=== PATIENT | female | born 2000 | race American Indian/Alaskan Native ===

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

== ENCOUNTER 2020-10-26 23:56 | Inpatient (IN) | payer MEDICAID ==
[2020-10-27] MEDS ORDERED: LACTATED RINGERS 1,000 ML IV ONE (01:05)
[2020-10-27] MEDS ORDERED: ePHEDrine SULFATE 50 MG/1 ML INJ IV PRN (01:23)
[2020-10-27] MEDS ORDERED: TERBUTALINE 1 MG/1 ML INJ SUB-Q PRN (01:23)
[2020-10-27] MEDS ORDERED: AMPICILLIN/NS 2 GM/100 ML 2 GM/100 ML BAG IV ONE (01:23)
[2020-10-27] MEDS ORDERED: LIDOCAINE (2%) 20 MG/1 ML VIAL 20 ML MDV INFILTRATI ONE (01:23)
[2020-10-27] MEDS ORDERED: LACTATED RINGERS 1,000 ML IV SCH (01:30)
--- NOTE | 2020-10-27 01:35 | History and Physical Report ---
History of Present Illness Date of examination: 10/27/20 Date of admission: 10/27/2020 Chief complaint: Possible leaking of fluid History of present illness: 20 year old presents to L&D stating that she had a small amount of discharge that was watery around 5:00 PM last evening but states that it stopped. She states she went to [facility] to see if her water was leaking; states she was told her water was not leaking and was sent home. Decided to come here for a second opinion. Patient states she does not have any watery discharge at the current time. She denies vaginal bleeding. She reports active movement. She states her EDC is 10/23/2020 but no records are available to confirm this. She states she has received care at [facility]. Patient states she had first trimester bleeding during this but has had an uneventful after her first trimester bleeding resolved. labs are not available; will request records as soon as office opens this morning. ROM plus was done upon arrival; result is negative. No fluid was seen leaking from vagina and pad is dry. Nitrazine negative. SVE 1.5/50/-3. Minimal to moderate FHR variability noted. Occasional variable FHR deceleration noted with rapid return to baseline (not recurrent, infrequent). Normal FHR baseline and accelerations noted. Past History Past Medical History: no pertinent history Past Surgical History: no surgical history [facility] REPOR[facility] History: chlamydia (history of chlamydia 5-6 years ago, treated and cured). denies: gonorrhea, hepatitis B, hepatitis C, herpes, HIV, syphilis, trichomonas Family/Genetic History: diabetes, cancer Social history: no significant social history - Obstetrical History Expected Date of Delivery: 10/23/20 Actual Gestation: 40 Week(s) 4 Day(s) : 2 Para: 1 Hx # Term Pregnancies: 0 Number of Pregnancies: 0 Spontaneous Abortions: 1 Induced : 0 Number of Living Children: 0 Medications and Allergies Allergies Allergy/AdvReac Type Severity Reaction Status Date / Time No Known Allergies Allergy Verified 10/27/20 01:09 Home Medications Medication Instructions Recorded Confirmed Last Taken Type Amoxicillin [Amoxicillin TAB] 875 mg PO BID 10 Days #20 tablet 07/06/18 Unknown Rx Clindamycin [Clindamycin CAP] 450 mg PO TID 7 Days #63 capsule 11/12/19 Unknown Rx Ibuprofen [Motrin 400 MG tab] 400 mg PO Q8H PRN #14 tablet 11/12/19 Unknown Rx Active Meds: Active Medications Ephedrine Sulfate (Ephedrine Sulfate 50 Mg/1 Ml Inj) 10 mg IV Q2M PRN PRN Reason: Hypotension Lactated Ringer's (Lactated Ringers) 1,000 mls @ 999 mls/hr IV BOLUS ONE Stop: 10/27/20 02:05 Lactated Ringer's (Lactated Ringers) 1,000 mls @ 125 mls/hr IV DIRECT MALACHI Oxytocin/Sodium Chloride (Pitocin/Ns 30 Unit/500ml) 30 units in 500 mls @ 40 mls/hr IV TITR MALACHI; Protocol Ampicillin Sodium (Ampicillin/Ns 2 Gm/100 Ml) 2 gm in 100 mls @ 100 mls/hr IV ONCE ONE; Protocol Stop: 10/27/20 02:22 Ampicillin Sodium (Ampicillin/Ns 1 Gm/50 Ml) 1 gm in 50 mls @ 100 mls/hr IV Q4H MALACHI; Protocol Lidocaine (Lidocaine (2%) 20 Mg/1 Ml Vial 20 Ml Mdv) 20 ml INFILTRATI ONCE ONE Stop: 10/27/20 01:24 Terbutaline Sulfate (Terbutaline 1 Mg/1 Ml Inj) 0.25 mg SUB-Q ONCE PRN PRN Reason: Hyperstimulation/Hypertonicity Review of Systems All systems: negative (possible leaking of fluid) - Vital Signs Vital signs: Vital Signs Pulse BP 100 H 130/74 10/27/20 00:58 10/27/20 00:58 Temp Pulse Resp BP Pulse Ox 99.5 F 100 H 16 130/74 10/27/20 01:00 10/27/20 01:00 10/27/20 01:00 10/27/20 01:00 - Physical Exam Abdomen: Positive: normal appearance, soft. Negative: distention, tenderness, guarding, rigidity Genitourinary (Female): Positive: normal external genitalia, normal perenium. Negative: perineal/vulvar lesions Vagina: Positive: normal moisture Uterus: Positive: enlarged. Negative: tender Anus/Rectum: Positive: normal perianal skin Extremities: Positive: normal. Negative: tenderness - Obstetrical FHR comments: Period of minimal variability on EFM; infrequent variable FHR deceleration with rapid return to baseline. Uterine Contraction Monitor Mode: External Cervical Dilatation: 1.5 Cervical Effacement Percentage: 50 station: -3 Uterine Contraction Pattern: Irregular Uterine Contraction Intensity: Mild Results All other labs normal. Assessment and Plan A: at 40 weeks, 4 days gestation by stated EDC. No records available. Variable FHR deceleration. P: Admit for observation overnight. Continuous EFM. US for BPP, RIVER, EDC/EGA, location and integrity of placenta, and presentation. UDS. IV hydration. Obtain records as soon as office opens this morning. Plan augmentation of labor as soon as able to obtain records/confirm EDC. Patient to have continuous EFM in the interim.
[2020-10-27] MEDS ORDERED: OXYTOCIN DRIP 30 UNITS/500 ML BAG IV SCH (02:00)
[2020-10-27 02:27] LABS: Hematocrit 32.3 % (30.3-42.9); Mean Corpuscular HGB Conc 34 % (30-34); Mean Corpuscular Volume 96 fl (79-97); Platelet Count 316 K/mm3 (140-440); Red Blood Count 3.35 M/mm3 (3.65-5.03); Red Cell Distribution Width 13.9 % (13.2-15.2)
--- NOTE | 2020-10-27 04:17 | Ultrasound Report ---
ULTRASOUND BIOPHYSICAL PROFILE INDICATION / CLINICAL INFORMATION: BPP. COMPARISON: None available. FINDINGS: BREATHING MOVEMENT = 2 GROSS BODY MOVEMENT = 2 TONE = 2 QUALITATIVE AMNIOTIC FLUID VOLUME = 2 TOTAL BIOPHYSICAL SCORE = 8/8 AMNIOTIC FLUID INDEX (cm) = 11.8 PRESENTATION: Cephalic. HEART RATE (beats per minute): 141 ADDITIONAL FINDINGS: None. IMPRESSION: 1. Biophysical Score = 8/8 Signer Name: Atul Merritt MD Signed: 10/27/2020 4:12 AM Workstation Name: [id number]
--- NOTE | 2020-10-27 04:19 | Ultrasound Report ---
ULTRASOUND OBSTETRIC INDICATION / CLINICAL INFORMATION: RIVER, presentation, EDC/EGA, check placenta. Clinical Gestational Age (GA): 40 weeks 4 days TECHNIQUE: Transabdominal. COMPARISON: None available. FINDINGS: There is a single intrauterine . Biparietal Diameter = 9.8 cm = 40 weeks, 0 day(s). Head Circumference = 34.1 cm = 39 weeks, 1 day(s). Abdominal Circumference = 32.1 cm = 36 weeks, 0 day(s). Femur Length = 7.6 cm = 39 weeks, 0 day(s). Average Ultrasound Age (AUA) = 38 weeks, 4 day(s). Heart Rate: 141 beats per minute. Estimated Weight in grams (if calculated): 3243 Estimated Weight Growth Percentile (if calculated): Position: cephalic. Cervix: closed. Length in cm (if measured): Placenta: Fundal left lateral grade 3 and free of the os. Amniotic Fluid Volume: normal Amniotic Fluid Index (RIVER) in cm (if calculated): 11.8. Maternal Adnexa: No significant abnormality. IMPRESSION: 1. Single, living intrauterine with estimated sonographic age of 38 weeks, 4 day(s). 2. No significant sonographic abnormality. Signer Name: Atul Merritt MD Signed: 10/27/2020 4:15 AM Workstation Name: [id number]
[2020-10-27] MEDS ORDERED: AMPICILLIN/NS 1 GM/50 ML 1 GM/50 ML BAG IV SCH (06:00)
--- NOTE | 2020-10-27 06:01 | Event Note ---
Date: 10/27/20 Rapid HIV test positive. Discussed rapid HIV positive test result with patient and advised patient that confirmatory test is pending and result may not be available for several days. Patient denies any known exposures or any previous knowledge of HIV. States she has one sexual partner. Denies having taken any medications for HIV and denies having seen perinatology during the . Consulted with Dr. Amador as soon as rapid HIV positive result was known. Dr. Amador states to call [facility] for recommendations. Call placed to [facility] answering service and awaiting call back.
--- NOTE | 2020-10-27 06:02 | Event Note ---
Date: 10/27/20
[2020-10-27 09:01] VITALS: BP 125/72
--- NOTE | 2020-10-27 09:56 | Event Note ---
Date: 10/27/20 Pt resting in bed w/o complaints. Admits to active FM. BPP 8 with an RIVER of 11.8 this am. FHT 124 with mod kalyan and + accels. Occ mild uc was noted. Pt was d/c'd home per Dr Cole. FKC and s&s of labor were explained. Pt was advised to call the office if labor starts or problems arise. She was also advised to f/u with the office this wk so she can be scheduled for an IOL r/t postdates if no delivery. Pt agreed. All questions were answered.
[2020-10-29 11:55] LABS: HIV-1 RNA QN PCR <1.30 Log cps/mL; HIV-1 RNA QN PCR <20 Copies/mL
== END 2020-10-27 11:30 | disposition home or self-care (01) | DRG 782 ==
LOC: TRG 23:56 → APU 23:57 → TRG 10-27 01:24 → LD 10-27 01:24
PROVIDERS: ADMIT Obstetrics & Gynecology; ATTEND Obstetrics & Gynecology
DX: O42.92 Full-term premature rupture of membranes, unspecified as to length of time between rupture and onset of labor (principal); Z3A.40 40 weeks gestation of pregnancy; Z83.3 Family history of diabetes mellitus; Z80.9 Family history of malignant neoplasm, unspecified; Z79.899 Other long term (current) drug therapy; Z21 Asymptomatic human immunodeficiency virus [HIV] infection status
CPT/HCPCS: 36415; 76816; 76819; 83036; 84112; 85027; 86592; 86689; 86706; 86762; 86850; 86900; 86901; 87536; 87806; G0378; U0003